=== PATIENT | female | born 1980 | race African-American/Black ===

== ENCOUNTER 2018-06-29 23:10 | Emergency (ER) | payer MEDICARE, OTHER ==
[2018-06-30] MEDS ORDERED: diphenhydrAMINE 25 MG CAP ONE (00:01)
[2018-06-30] MEDS ORDERED: Promethazine 25 MG TAB ONE (00:01)
[2018-06-30 00:02] LABS: #Basophils 0.1 thou/uL (0.0-0.2); #Eosinphils 0.1 thou/uL (0.0-0.7); #Lymphocytes 2.8 thou/uL (1.20-3.40); #Monocytes 0.8 thou/uL (0.11-0.59); #Neutrophils 7.6 thou/uL (1.40-6.50); %Basophils 0.8 % (0.0-1.0); %Eosinophils 1.3 % (0.0-10.0); %Lymphocytes 24.4 % (21.0-51.0); %Monocytes 6.7 % (0.0-10.0); %Neutrophils 66.8 % (42.0-75.0); Hemoglobin 10.8 g/dL (12.0-16.0); Mean Corpuscular HGB CONC 31.5 g/dL (32.0-36.0); Mean Corpuscular Hemoglobin 27.7 pg (27.0-31.0); Mean Corpuscular Volume 88.1 fL (78.0-98.0); Mean Platelet Volume 7.5 fL (7.4-10.4); Platelet Count 349 thou/uL (130-400); RBC Distribution Width 13.8 % (11.5-14.5); Red Blood Cell (RBC) Count 3.88 mill/uL (4.20-5.40); White Blood Cell (WBC) Count 11.4 thou/uL (4.8-10.8)
[2018-06-30 00:10] LABS: Anion Gap 11 mmol/L (10-20); Calcium 9.4 mg/dL (7.8-10.44); Carbon Dioxide 25 mmol/L (22-29); Chloride 107 mmol/L (98-107); Glucose 89 mg/dL (70-105); Potassium 3.5 mmol/L (3.5-5.1); Sodium 139 mmol/L (136-145)
[2018-06-30 00:11] LABS: BUN (Urea Nitrogen) 12 mg/dL (7.0-18.7); Calc. Creatinine Clearance 0 mL/min (70-130); Estimated GFR-MDRD Greater than 90
[2018-06-30] MEDS ORDERED: Sodium Chloride 0.9% 1,000 ML ONE (00:15)
[2018-06-30] MEDS ORDERED: Ketorolac Tromethamine 30 MG/ML VIAL ONE (00:15)
== END 2018-06-30 00:58 | disposition home or self-care (01) ==
LOC: NAV ERS 23:10
DX: G43.909 Migraine, unspecified, not intractable, without status migrainosus (principal); I10 Essential (primary) hypertension; F41.9 Anxiety disorder, unspecified; F31.9 Bipolar disorder, unspecified; Z79.899 Other long term (current) drug therapy
CPT/HCPCS: 36416; 80048; 85025; 93005; 96374; J1885; J7050

== ENCOUNTER 2019-06-11 10:36 | Emergency (ER) | payer MEDICARE, OTHER | END 2019-06-11 11:30 | disposition home or self-care (01) | LOC: NAV ERS 10:36 | DX: J06.9 Acute upper respiratory infection, unspecified (principal); R53.83 Other fatigue; G43.909 Migraine, unspecified, not intractable, without status migrainosus; F41.9 Anxiety disorder, unspecified; F31.9 Bipolar disorder, unspecified; Z79.899 Other long term (current) drug therapy | CPT/HCPCS: 99281 ==

== ENCOUNTER 2019-06-18 10:50 | Emergency (ER) | payer MEDICARE, OTHER | END 2019-06-18 11:25 | disposition home or self-care (01) | LOC: NAV ERS 10:50 | DX: R05 Cough (principal); G43.909 Migraine, unspecified, not intractable, without status migrainosus; F41.9 Anxiety disorder, unspecified; F31.9 Bipolar disorder, unspecified | CPT/HCPCS: 99281 ==

== ENCOUNTER 2019-07-31 15:29 | Emergency (ER) | payer MEDICARE, OTHER, MEDICAID ==
[2019-07-31] MEDS ORDERED: Ondansetron ODT 4 MG TAB ONE (16:13)
== END 2019-07-31 17:18 | disposition home or self-care (01) ==
LOC: NAV ERS 15:29
DX: B34.9 Viral infection, unspecified (principal); R10.816 Epigastric abdominal tenderness; R10.811 Right upper quadrant abdominal tenderness; G43.909 Migraine, unspecified, not intractable, without status migrainosus; F41.9 Anxiety disorder, unspecified; F31.9 Bipolar disorder, unspecified; Z79.899 Other long term (current) drug therapy
CPT/HCPCS: 87081; 87430; 99283; Q0162

== ENCOUNTER 2020-08-28 19:28 | Emergency (ER) | payer MEDICARE, MEDICAID ==
[2020-08-29 14:20] LABS: SARS-CoV-2 PCR by NAA Not Detected (NotDetected)
== END 2020-08-28 20:10 | disposition home or self-care (01) ==
LOC: NAV ERS 19:28
DX: J06.9 Acute upper respiratory infection, unspecified (principal); Z20.822 Contact with and (suspected) exposure to COVID-19; I10 Essential (primary) hypertension; G43.909 Migraine, unspecified, not intractable, without status migrainosus; Z79.899 Other long term (current) drug therapy
CPT/HCPCS: 99283; U0003; U0005; 87635

== ENCOUNTER 2023-07-18 15:53 | Emergency (ER) | payer MEDICAID, MEDICARE | END 2023-07-18 16:48 | disposition home or self-care (01) | LOC: NAV ERS 15:53 | DX: R05.9 Cough, unspecified (principal) | CPT/HCPCS: 99283 ==